=== PATIENT | male | born 1960 | race African-American/Black ===

== ENCOUNTER 2018-09-23 09:48 | Observation (INO) | payer OTHER ==
[2018-09-23 10:23] LABS: ADD MAN DIFF? NO
[2018-09-23 10:24] LABS: BASOPHILS % 0.5 % (0.0-2.0); EOSINOPHILS % 0.6 % (0.0-7.0); HEMATOCRIT 49.4 % (42.0-52.0); HEMOGLOBIN 16.5 g/dl (14.0-18.0); LYMPHOCYTES # 1.8 10^3/ul (0.8-2.9); LYMPHOCYTES % 27.4 % (15.0-51.0); MEAN CORPUSCULAR HEMOGLOBIN 30.3 pg (29.0-33.0); MEAN CORPUSCULAR HGB CONC 33.4 g/dl (32.0-37.0); MEAN CORPUSCULAR VOLUME 90.6 fl (82.0-101.0); MONOCYTE # 0.8 10^3/ul (0.3-0.9); MONOCYTES % 11.6 % (0.0-11.0); NEUTROPHIL # 3.9 10^3/ul (1.6-7.5); NEUTROPHILS % 59.7 % (39.0-77.0); PLATELET COUNT 159 10^3/UL (140-415); RED BLOOD COUNT 5.45 10^6/ul (4.70-6.10); RED CELL DISTRIBUTION WIDTH 18.6 % (11.5-14.5)
[2018-09-23 10:24] LABS: WHITE BLOOD COUNT 6.5 10^3/ul (4.8-10.8)
[2018-09-23] MEDS: morphine 4 MG/ML VIAL IV (10:34)
[2018-09-23] MEDS: ONDANSETRON 4 MG INJ IV (10:34)
[2018-09-23] MEDS: ASPIRIN 325 MG TAB PO (10:34)
[2018-09-23 10:43] LABS: INR 1.15; PROTIME 14.8 Sec (11.9-14.9); PT RATIO 1.2
[2018-09-23 10:44] LABS: PARTIAL THROMBOPLASTIN TIME 32.5 Sec (23.0-35.0)
[2018-09-23 10:45] LABS: ALANINE AMINOTRANSFERASE 23 IU/L (13-69); ALBUMIN 4.3 g/dl (3.3-4.9); ALBUMIN/GLOBULIN RATIO 0.84; ALKALINE PHOSPHATASE 182 IU/L (42-121); ANION GAP 19 (5-13); ASPARTATE AMINO TRANSFERASE 74 IU/L (15-46); BILIRUBIN,INDIRECT 2.6 mg/dl (0-1.1); BILIRUBIN,TOTAL 2.6 mg/dl (0.2-1.3); BLOOD UREA NITROGEN 11 mg/dl (7-20); CALCIUM 9.2 mg/dl (8.4-10.2); CARBON DIOXIDE 22 mmol/L (21-31); CHLORIDE 103 mmol/L (97-110); CREATININE 1.08 mg/dl (0.61-1.24); Estimated GFR > 60 mL/min (>60); GLUCOSE 119 mg/dl (70-220); POTASSIUM 3.4 mmol/L (3.5-5.1); SODIUM 144 mmol/L (135-144); TOTAL PROTEIN 9.4 g/dl (6.1-8.1)
[2018-09-23 10:46] LABS: D-DIMER 317.63 ng/ml (<460)
[2018-09-23 10:56] LABS: B-TYPE NATRIURETIC PEPTIDE 146 PG/ML (0-125); TROPONIN-I < 0.012 ng/ml (0.000-0.120)
[2018-09-23] MEDS: IOHEXOL 100 ML (11:10)
[2018-09-23] MEDS: SOD CHLORIDE 0.9% 100 ML (11:10)
[2018-09-23] MEDS ORDERED: ONDANSETRON 4 MG INJ IV (14:30)
[2018-09-23] MEDS: METOPROLOL 50 MG TAB PO (15:51)
[2018-09-23] MEDS ORDERED: METOPROLOL 5 MG INJ IV (17:30)
[2018-09-23] MEDS ORDERED: NITROGLYCERIN (SL) 0.4 MG TAB SL (17:30)
[2018-09-23 18:08] LABS: CREATINE KINASE 272 IU/L (23-200)
[2018-09-23 18:22] LABS: CK INDEX 0.5; TROPONIN-I < 0.012 ng/ml (0.000-0.120)
[2018-09-23 18:34] LABS: CK-MB 1.35 ng/ml (0.0-2.4)
[2018-09-23] MEDS ORDERED: ZOLPIDEM 5 MG TAB PO (20:30)
[2018-09-23] MEDS: POTASSIUM CHLORIDE (SR) 20 MEQ TAB PO (21:46)
[2018-09-23] MEDS: TAMSULOSIN (SR) 0.4 MG CAP PO (21:46)
[2018-09-23] MEDS: GABAPENTIN 300 MG CAP PO (21:46)
[2018-09-23] MEDS: SUCRALFATE 1 GM TAB PO (21:46)
[2018-09-23] MEDS: ATORVASTATIN 10 MG TAB PO (21:47)
[2018-09-23] MEDS: DULOXETINE 20 MG CAP DR PO (21:56)
[2018-09-23] MEDS: ENOXAPARIN 40 MG/0.4 ML SYG SC (22:00)
[2018-09-23] MEDS: PROPRANOLOL 20 MG TAB PO (23:35)
[2018-09-24] MEDS: ACETAMINOPHEN 325 MG TAB PO (00:45)
[2018-09-24 01:05] LABS: CREATINE KINASE 232 IU/L (23-200)
[2018-09-24 01:17] LABS: CK INDEX 0.5; CK-MB 1.18 ng/ml (0.0-2.4); TROPONIN-I < 0.012 ng/ml (0.000-0.120)
[2018-09-24 05:59] LABS: CHOL/HDL RATIO 4.5 RATIO; HDL CHOLESTEROL 51 mg/dl (28-71); LDL CHOLESTEROL,CALCULATED 167 mg/dl; TRIGLYCERIDES 68 mg/dl (0-149)
[2018-09-24 05:59] LABS: CHOLESTEROL 232 mg/dl (100-200)
[2018-09-24] MEDS: SUCRALFATE 1 GM TAB PO ×3 (06:20→16:58)
[2018-09-24] MEDS: PROPRANOLOL 20 MG TAB PO (08:37)
[2018-09-24] MEDS: GABAPENTIN 300 MG CAP PO ×2 (08:37→12:43)
[2018-09-24] MEDS: DULOXETINE 20 MG CAP DR PO (08:37)
[2018-09-24] MEDS: ENOXAPARIN 40 MG/0.4 ML SYG SC (08:45)
[2018-09-24] MEDS: REGADENOSON 0.4 MG/5 ML SYG (11:56)
[2018-09-24] MEDS: morphine SULFATE/PF (2 MG/2 ML) SYG IV (14:28)
[2018-09-24] MEDS ORDERED: ATORVASTATIN 20 MG TAB PO (21:00)
== END 2018-09-24 17:07 | disposition home or self-care (01) ==
LOC: E/R 09:48 → TEL 14:12
DX: R07.9 Chest pain, unspecified (principal); R00.2 Palpitations; I10 Essential (primary) hypertension; E78.5 Hyperlipidemia, unspecified; N40.0 Benign prostatic hyperplasia without lower urinary tract symptoms; K72.90 Hepatic failure, unspecified without coma
CPT/HCPCS: 36415; 71045; 71275; 78452; 80053; 80061; 82550; 82553; 83880; 84443; 84484; 85025; 85378; 85610; 85730; 93005; 93017; 93306; 96374; 96375; 99217; 99285-25; G0378